=== PATIENT | female | born 1990 | race Caucasian/White ===

== ENCOUNTER 2017-01-28 00:04 | Inpatient (IN) | payer MEDICAID ==
[2017-01-28] VITALS (10 sets, daily range): BP systolic 94–132; BP diastolic 55–83; Ht 162.6 cm; Wt 113.2 kg
[~2017-01-28] VITALS: Ht 162.6 cm; Wt 113.2 kg
[~2017-01-28 00:04] MED LIST: ALPHAGAN 0.2%5 ML; CALCIUM 600 +1 EAC3 PO; IBUPROFEN600 MG PO; PERCOCET 5-3251 TAB PO; PROBIOTIC1 EAC1 PO; VITAMIN C250 MG
[2017-01-28 00:59] LABS: APPEARANCE HAZY (CLEAR); COLOR YELLOW (YELLOW); GLUCOSE NEGATIVE (NEGATIVE); KETONE SMALL mg/dL (NEGATIVE); LEUKOCYTE ESTERASE NEGATIVE (NEGATIVE); NITRITE NEGATIVE (NEGATIVE); PROTEIN NEGATIVE (NEGATIVE); UROBILINOGEN NORMAL (NORMAL)
[2017-01-28 01:00] LABS: BILIRUBIN NEGATIVE (NEGATIVE)
[2017-01-28 01:09] LABS: UDS - AMPHET NEGATIVE QUAL (NEGATIVE); UDS - BARB NEGATIVE QUAL (NEGATIVE); UDS - BENZO NEGATIVE QUAL (NEGATIVE); UDS - COCAINE NEGATIVE QUAL (NEGATIVE); UDS - METH NEGATIVE QUAL (NEGATIVE); UDS - OPIATE NEGATIVE QUAL (NEGATIVE); UDS - PCP NEGATIVE QUAL (NEGATIVE); UDS - THC NEGATIVE QUAL (NEGATIVE)
[2017-01-28 07:10] LABS: HEMATOCRIT 36.1 % (36.0-48.0); HEMOGLOBIN 11.6 g/dL (12-16); MCH 30.2 pg (26.0-34.0); MCHC 32.1 g/dL (31.0-37.0); MEAN PLATELET VOLUME 9.6 fL (7.4-10.4); RBC 3.84 10x6/uL (4.00-5.40); RDW 13.7 % (11.5-14.5); WBC 9.7 10x3/uL (4.8-10.8)
--- NOTE | 2017-01-28 08:07 | NUR ---
BABY BOY BORN AT 0742 PLACENTA AT 0743
--- NOTE | 2017-01-28 09:10 | NUR ---
REC'D PT BACK FROM RECOVERY POST-OP PRIMARY VIA BED. PT DROWZY, FREQUENTLY SLEEPY. PT UNABLE TO VERBALIZE/REPORT A NUMBER FOR PAIN SCALE. FACE SCALE USED AT THIS TIME. PAIN RATES 3/10 PER THIS RN. PT'S BREATHSOUNDS CL/=, ABD SOFT,NON-DISTENDED. FUNDUS FIRM,U/U, SMALL RUBRA LOCHIA NOTED TO CURRENT PERIPAD. CLEAN PAD PLACED AT THIS TIME. LOW TRANSVERSE INCISION W/LARGE ABD DRESSING IN PLACE. C/D/I. BRUCE CATH IN PLACE DRAINING VIA GRAVITY AT BEDSIDE. APPROX 500ML NOTED IN BAG. BAG EMPTIED AT THIS TIME. PEDAL PULSES PRESENT X 2. GENERALIZED, NON PITTING EDEMA NOTED TO LOWER EXTREMITIES. SCD WRAPS IN PLACED BILATERALLY. CONNECTED TO PUMP. PUMP IS ON AND FUNTIONING.PT HAS A PIV TO RT WRIST W/18GUAGE. NS W/20 UNITS PITOCIN CURRENTLY CONNECTED INFUSING AT SLOWR ATE VIA GRAVITY. APPROX 200ML REMAINS IN BAG. BAG PLACED ON PUMP AT THIS TIME TO INFUSE AT 125ML/HR. DEMEROL PRINTING SPECIALIST CONNECTED TO IV SITE AND PRINTING SPECIALIST PUMP SET PER MD ORDERS. REPORT REC'D FROM RECOVERY NURSE.
--- NOTE | 2017-01-28 09:30 | NUR ---
PT REMAINS DROWZY, FACE SCALE CONTINUED TO BE USED FOR PAIN ASSESSMENT. PAIN ASSESSED AT 12/03. FUNDUS FIRM,U/U, SCANT LOCHIA NOTED. V/S STABLE.
--- NOTE | 2017-01-28 09:45 | NUR ---
FUNDUS FIRM,U/U, SCANT LOCHIA NOTED. ICE CAP TO ABD. PT REMAINS DROWZY. NBN NURSE TO ROOM W/ AT THIS TIME.
--- NOTE | 2017-01-28 10:00 | NUR ---
ECTOR ( CONST) AND Dania OSPINARN AT BEDSIDE CURRENTLY ATTEMPTING TO GET LATCHED FOR NURSING. PT REPORTS INCREASED PAIN WHEN SITTING UP. Dania OSPINARN PROVIDES PT W/PRODUCT COORDINATOR BUTTON SO PT MAY PUSH IT AT THIS TIME. APPROX 95ML URINE NOTED IN UROMETER AND DUMPED TO BRUCE BAG. TORADOL 30MG SIVP GIVEN. SEE EMAR.
--- NOTE | 2017-01-28 10:25 | NUR ---
Rachana Henrietta 01/28/17 O: Patient in bed holding infant, attempting first feeding, FOB at bedside, nursery nurse in room to assist patient. Explain to patient how to hold for feeding, turn tummy to tummy, nose opposite of nipple, allow to self latch. Showed and explained how to apply nipple shield correctly. Patient is drowsy due to meds. Explain to FOB how important it is to stand by patient and help hold infant up, to make sure doesn't fall, if patient relaxes her arms. Infant latches on the right breast at 10:16, in laid back position, mouth 140 degrees, sucking in a rocking motion, round checks, mother and infant both appear content. Encouraged to allow infant to remain latch as long as he is willing to suck, when comes off the breast, or completely falls asleep, try stimulating by touch, burp and offer other breast. Patient states verbally understands. Will follow up, CLC left patient in room with nursery nurse. A: Client delivered by , requested nipple shield, attempting first feeding. P: Continue to support . Renee Sabillon, ЕКАТЕРИНА
--- NOTE | 2017-01-28 11:00 | NUR ---
THIS RN TO BEDSIDE. PT CURRENTLY HOLDING AFTER NURSING. PT CONTINUES TO BE DROWZY. TRANSFERED TO CRIB TO BE SWADDLED THEN PLACED IN FOB'S ARMS. PT RATES PAIN 5/10. PT HAS BEEN INSTRUCTED ON HOW TO USE HER FIELD MANAGER BUTTON AND HAS BEEN PUSHING IT. FUNUDS FIRM,U/U, SMALL RUBRA LOCHIA NOTED ON PERIPAD. PAD CHANGED AT THIS TIME. APPROX 20ML URINE NOTED IN UROMETER. PT ENCOURAGED TO INCREASE WATER INTAKE. V/S OBTAINED AND RECORDED. SEE FLOWSHEET. PT INFORMED THAT ONCE SHE BECOMES MORE ALERT, INCENTIVE SPIROMETER TEACHING WILL BE GIVEN AND PT WILL HAVE TO BEGIN T/C/D. PT'S SPOUSE REMAINS AT BEDSIDE. ICE CAP FRESHENED AND PLACED OVER INCISION SITE. FRESH ICE WATER SERVED AND PLACED AT PT'S BEDSIDE. PT BED IN LOW POSITION. SIDE RAILS UP X 2. CALL LIGHT, PHONE AND FIELD MANAGER BUTTON AT PT'S SIDE.
[2017-01-28] MEDS ORDERED: PRENATAL COMPLE1 TAB PO (11:13)
[2017-01-28] MEDS ORDERED: KEFLEX500 MG PO (11:16)
--- NOTE | 2017-01-28 12:00 | NUR ---
THIS RN TO BEDSIDE. PT CURRENTLY RESTING W/EYES CLOSED IN HIGH DELEON'S. I.S PROVIDED W/TEACHING. PT PERFORMS I.S X 3 ABLE TO PULL 2000. PT COUGH W/POOR EFFORT. HOB LOWERED. PT ROLLS FROM SIDE TO SIDE W/MODERATE ASSISTANCE. FUNDUS FIRM,U/U. SMALL RUBRA LOCHIA NOTED TO PAD. PERICARE DONE. CLEAN PAD PLACED. PT RETURNS TO HIGH DELEON'S PER PREFERNCE FOR COMFORT. APPROX 20ML URINE OUTPUT NOTED FOR PAST 1 HR. WILL CONTINUE TO MONITOR. PT'S CLEAR LIQUID LUNCH TRAY PLACED IN FRONT OF HER. PT HAS DRANK APPROX 300ML WATER FROM [facility] MUG. MUG REFILLED AND PLACED ON PT'S TABLE WITHIN HER REACH. NO NEEDS VOICED AT THIS TIME.
--- NOTE | 2017-01-28 13:00 | NUR ---
THIS RN TO BEDSIDE. PT SITTING IN [place]'S MORE AWAKE AND ALERT, BUT REPORT SHE STILL DOZES OFF OCCAISIONALLY. PT CONTINUES TO RATE HER PAIN 5/10 W/INCREASED PAIN W/MOVEMENT. PT DOES NOT APPEAR TO BE IN DISTRESS. PT HAS DRANK APPROX 200ML OF WATER AND APPLE JUICE. HAS NO TOUCHED HER CLEAR LIQUID LUNCH TRAY. APPROX 20ML URINE NOTED FOR THE PAST 1 HR. WILL REPORT TO RECEIVER SETTER MD. PT DENIES NEEDS AT PRESENT. FOB RETURNS TO ROOM AT THIS TIME.
--- NOTE | 2017-01-28 13:24 | NUR ---
DR VALLES NOTIFIED OF PT'S DECREASED URINE OUTPUT. ORDER REC'D TO INFUSE A 500ML BOLUS AND REPORT BACK.
--- NOTE | 2017-01-28 13:40 | NUR ---
THIS RN TO BEDSIDE TO INITATE 500ML NS BOLUS PER MD ORDER. PT AWAKE, WITH OCCASIONAL PERIODS OF DROWZINESS. PT CONTINUES TO RATE HER PAIN 5/10. PT HAS DRAPERY AND UPHOLSTERY ESTIMATOR BUTTON AT SIDE AND CONTINUES TO PUSH IT FOR PAIN. V/S OBTAINED. SEE FLOWSHEET. PT PERFORMS I.S X 3. COUGHS W/POOR EFFORT. REPOSITIONS SELF UP IN BED. UROMETER EMPTIED AT THIS TIME. FUNDUS FIRM,U/U, SMALL RUBRA LOCHIA NOTED. CLEAN PERIPAD PLACED. SCD WRAPS REMAIN ON BILATERALLY. CONNECTED TO PUMP. PT REMAINS ON. PT ENCOURAGED TO CONTINUE DRINK PO FLUIDS TO HELP WITH URINE OUTPUT. PT IS AGREEABLE. PT'S BED LOW, SIDE RAILS UP X 2. CALL LIGHT AND PHONE AT PT'S SIDE. SPOUSE IN ROOM. INFANT QUIET IN CRIB AT BEDSIDE.
--- NOTE | 2017-01-28 14:15 | NUR ---
IVAC SOUNDING. THIS RN TO BEDSIDE. 500ML BOLUS COMPLETE. PT RESTING W/EYES CLSOED. RESP EVEN. NS W/20 UNITS PITOCIN RESTARTED AT 125ML/HR. 30ML URINE NOTED IN UROMETER.
--- NOTE | 2017-01-28 15:00 | NUR ---
THIS RN TO BEDSIDE. PT CURRENTLY SITTING UP IN BED W/ UP IN ARMS. CONTINUES TO RATE PAIN 5/10. PT CONTINUES TO USE STRAIGHT LINE PRESS SETTER BUTTON. PT IFNORMED THAT SHE MAY AHVE ADDITIONAL DOSE OF TORDAL IN 1 HR. URINE OUTPUT NOTED TO BE 60ML TOTAL FOR PAST [id number]. PT DENEIS NEEDS AT THIS TIME.
--- NOTE | 2017-01-28 16:00 | NUR ---
THIS RN TO BEDSIDE. UPON ENTERING THE ROOM, PT IS RESTING QUIETLY IN HIGH DELEON'S W/EYES CLOSED. RESP EVEN AND UNLABORED. NO APPARENT DISTRESS NOTED. PT AWAKENED FOR PAIN ASSESSMENT. PT REPORTS PAIN 12/03. STATES "BUT I'M STILL HAVING CTX'S THAT ARE BAD." TORADOL 30MG SIVP GIVEN FOR PT C/O CRAMPING. PT TURNS FROM SIDE TO SIDE W/ASSISTANCE. CLEAN CHUX AND TOWEL PLACED. FUNDUS FIRM,U/1, SMALL LOCHIA W/1 QUARTER SIZED BLOOD CLOT NOTED. CLEAN PERIPAD PLACED. APPROX 95ML URINE NOTED IN UROMETER. PT'S HOB ELEVATED TO 30 DEGREES. BED LOW, SIDE RAILS UP X 2. CALL LIGHT AND WRINGER MACHINE OPERATOR BUTTON AT PT'S SIDE.
--- NOTE | 2017-01-28 17:00 | NUR ---
THIS RN TO BEDSIDE. PT CURRENTLY RESTING QUIETLY W/EYES CLOSED. RESP EVEN. PT OPENS EYES SPONTANEOUSLY W/VERBAL STIMULUS. PAIN ASSESSED. PT RATES PAIN 2-3/10. V/S OBTAINED. SEE FLOWSHEET. APPROX 60ML URINE NOTED IN UROMETER AND DUMPED INTO BAG. PT PERFORMS I.S. X3. COUGHS W/POOR EFFORT. FRESH ICE WATER SERVED IN [facility] MUG.
--- NOTE | 2017-01-28 18:00 | NUR ---
ROUNDS MADE. PT SITTING UP IN HIGH DELEON'S VISITING W/GUESTS. PAIN ASSESSED. PT REPORTS PAIN 3-4/. NO ADDITIONAL PAIN INTERVENTIONS REQUESTED AT THIS TIME. I&O COLLECTED. PUMP CLEARED. APPROX 60ML URINE OUTPUT NOTED IN UROMETER AND DUMPED INTO BRUCE BAG. PT CURRENTLY ATTEMPTING TO COMSUME LIQUID DIET DINNER TRAY SERVED. PT DENIES NEEDS AT PRESENT.
--- NOTE | 2017-01-28 19:06 | NUR ---
PT. SITTING UP IN BED WITH HOB ELEVATED 45 DEGREES WITH MEAL TRAY IN FRONT OF PT. PT. STATES SHE ONLY ATE JELLO. MORE OFFERED AND ACCEPTED. JELLO GIVEN TO PT. RATES PAIN A 2-3 OF 10 ON PAIN SCALE. BREATH SOUNDS CLEAR AND BOWEL SOUNDS AUDIBLE. SCDS ON AND FUNCTIONAL. DEMONSTATED COUGHING AND DEEP BREATHING AND ALSO USE OF INCENTIVE SPIROMETER AND ABLE TO ACHIEVE TO 2000. IV NOTED IN RT WRIST AREA WITHOUT REDNESS NOR EDEMA AT IV SITE. IV OF NS WITH 20U PITOCIN ADDED INFUSING AT 125CC/HR. INFANT IN OPEN CRIB AT BEDSIDE. PT. STATES SHE STILL FEELS VERY DROWSY. FOB LYING ON SOFA. LIGHTS IN ROOM DIMMED. PT. SPEAKING IN VERY LOW TONE. BRUCE PATENT AND DRAINING WITH 65CC NOTED IN URINE METER.
--- NOTE | 2017-01-28 19:48 | NUR ---
DR. VALLES CALLED AND INFORMED OF PT. CURRENT STATUS AND INQUIRED IF PT. COULD BEGIN ORAL MEDS AND START AMBULATION. INFORMED THAT ORAL PAIN MED ORDERS WERE ALREADY ENTERED PER DR. SOUTH. STATES TO PROCEDE.
--- NOTE | 2017-01-28 20:06 | NUR ---
PT INFANT AT THIS TIME. Kanwal POWELL RN AT BEDSIDE ALSO. UPDATED PT ON PLAN OF CARE, VERBALIZED UNDERSTANDING. INSTRUCTED TO USE CL TO NOTIFY RN WHEN SHE COMPLETED . PT NODDED IN AGREEMENT. HOSPITAL INTERNSHIP AND IV FLUIDS TURNED OFF, WILL REMOVE BRUCE AND SL PIV WHEN PT COMPLETES . 3 MLS USED FROM HOSPITAL INTERNSHIP WITH 254 MLS IV FLUIDS INFUSED SINCE LAST CLEARED.
--- NOTE | 2017-01-28 20:15 | NUR ---
PT CALLED OUT VIA CL, STATES THAT SHE HAS FINISHED . Kanwal POWELL RN TO BEDSIDE ALSO. LENORA STOCK SL PIV. Kanwal POWELL RN REMOVED BRUCE WITH NO DIFFICULTY, 165 MLS OUT FROM BRUCE NOTED. PT TOLERATED WELL. DINNER TRAY REMOVED FROM ROOM. S/O REMAINS AT BEDSIDE, SUPPORTIVE OF PT. PT DENIES ADDITIONAL NEEDS AT THIS TIME. PT WITH ICE PACK ON TOP OF GOWN TO LOWER ABD COVERING INCISION SITE. BED IN LOW POSITION WITH UPPER SIDE RAILS RAISED X2. CL AND PHONE WITHIN PT REACH. S/O REMAINS AT BEDSIDE.
--- NOTE | 2017-01-28 21:43 | NUR ---
ROUNDS MADE. PT REQUESTING PAIN MEDICATION. PAIN 04/04. RN DISCUSSED DIFFERENT STRENGTHS ON PERCOCET AND POSSIBLE SIDE EFFECTS. VERBALIZED UNDERSTANDING. PERCOCET TAKEN TO PT PER ORDER AND PT PAIN RATING AND REQUEST. UPON ADMINISTERING MEDICATION PT REPORTS THAT "I AM SENSITIVE TO PAIN MEDICINE." REQUESTS TO TAKE HALF OF PILL AT THIS TIME. PT BROKE PILL IN HALF AND STATES THAT SHE IS AFRAID TO TAKE FULL PILL AT THIS TIME. HALF OF PILL WASTED WITH Kanwal POWELL RN IN THE SHARPS. NEW ICE PACK GIVEN AND APPLIED TO INCISION SITE, DRSG REMAINS CLEAN, DRY, AND INTACT. ICE WATER GIVEN. LINENS AND PILLOW PROVIDED TO S/O. DENIES ADDITIONAL NEEDS AT THIS TIME. REQUESTS BE TAKEN TO NBN UNTIL TIME FOR NEXT FEEDING, THIS RN TAKES TO NBN. WILL CONT TO MONITOR AND ASSIST PRN.
--- NOTE | 2017-01-28 22:32 | NUR ---
PAIN REASSESSMENT COMPLETED. PT REPORTS THAT PAIN IS 4/10. STATES THAT CRAMPING IS INTENSE AT TIMES. DENIES NEED FOR ADDITIONAL INTERVENTION AT THIS TIME. S/O AT BEDSIDE, HOLDING PT HAND AT THIS TIME. BED IN LOW POSITION WITH UPPER SIDE RAILS RAISED X2. CL AND PHONE WITHIN REACH. WILL CONT TO MONITOR AND ASSIST PRN.
--- NOTE | 2017-01-28 22:58 | NUR ---
PT CONTINUES TO REPORT "BAD CRAMPING" TO LOWER ABD. DISCUSSED ADDITIONAL DOSE OF TORADOL PER ORDERS. PT AGREEABLE. MEDICATION FREQUENY AND SIDE EFFECTS DISCUSSED WITH PT AND S/O, VERBALIZED UNDERSTANDING, STATES THAT SHE HAS HAD MEDICATION PREVIOUSLY AND IT DID HELP WITH PAIN GREATLY. NBN RN BRINGS INFANT TO ROOM FOR . RN ASSISTED PT WITH SCOOTING UP IN BED FOR BREAST FEEDING, STATES THAT SHE ALSO HAS DISCOMFORT TO COCCYX. PILLOW PLACED UNDER LEFT HIP TO ASSIST WITH DISPLACING PRESSURE, VERBALIZED RELIEF. S/O REMAINS AT BEDSIDE, HOLDING . ASSISTANCE WITH OFFERED AND DECLINED, PT REPORTS THAT SHE WILL NOTIFY RN IF ASSISTANCE IS NEEDED WITH CL. BED IN LOW POSITION WITH UPPER SIDE RAILS RAISED X2. CL AND PHONE WITHIN REACH. S/O REMAINS AT BEDSIDE. ICE WATER PROVIDED FOR S/O PER REQUEST.
--- NOTE | 2017-01-29 00:10 | NUR ---
INTO PT. ROOM TO ASSIST PT. TO GET UP TO BATHROOM. PT. USING INCENTIVE SPIROMETER WHEN NURSES ENTERED ROOM. PT. MORE AWAKE AND ALERT AT THIS TIME THAN EARLIER IN SHIFT. SPEAKING TONE OF PT. LOUDER. STATES SHE FEELS URGE TO VOID. TO SITTING POSITION ON SIDE OF BED WITH MINIMAL ASSISTANCE AND USING PILLOW TO SPLINT ABD. STANDING AT SIDE OF BED AND AMBULATED TO BATHROOM WITH MINIMAL ASSISTANCE. STEADY, ALTHOUGH, SLOW GAIT. VOIDED 850CC. ASSISTED PT. WITH KAYLA CARE AND ASSISTED WITH KAYLA PADS AND PANTIES APPLIED. BACK TO BED AND POSITIONED TO LT SIDE AND SUPPORTED WITH PILLOW. SCDS REAPPLIED AND FUNCTIONAL. PT. RATES PAIN A 4 OF 10 AFTER TORADOL INJECTION BUT REMARKS THAT MEDICATION HELPED. ABD. DRESSING DRY AND INTACT AND LOCHIA RUBRA SCANT TO MOD. FOB REMAINS IN ROOM WITH PT. ENCOURAGED TO CALL FOR ASSISTANCE NEXT TIME SHE FELT SHE NEEDED TO VOID. SIDE RAILS UP X 2.
[2017-01-29 00:12] VITALS: BP 95/50
--- NOTE | 2017-01-29 02:20 | NUR ---
PT. REQUESTED ASSISTANCE IN GETTING LATCHED FOR . REPORTS THAT SHE HAS BEEN USING BREAST SHIELD BUT BREAST ARE NOW SORE AND SHE DOES NOT WANT TO USE. NIPPLES NOTED TO BE FLAT AND BREAST LARGE. ATTEMPTED TO ASSIST PT. BUT UNABLE TO GET LATCHED. PT. SWITCHED BREAST AND NIPPLE ROLLED IN ORDER TO GET NIPPLE MORE ERECT BUT STILL UNABLE TO LATCH DISPITE NUMEROUS ATTEMPTS BY INFANT. SUGGESTED PT. MIGHT TRY PUTTING SHIELD ON UNTIL NURSES LONG ENOUGH TO GET NIPPLE OUT FURTHER , THEN REMOVE SHIELD. PT. REPORTS "IT IS JUST TOO PAINFUL". INQUIRED IF PT. HAD ANY DIFFICULTY WITH HER PAST CHILDREN GETTING A GOOD LATCH. PT. REPORTS THAT SHE DID. PT. STATES "WE WILL GET IT FIGURED OUT". ALSO ENCOURAGED PT. TO [employer] MILK TO NIPPLE FOR TO TASTE AND PT. DID SAME BUT INFANT STILL UNABLE TO LATCH.
--- NOTE | 2017-01-29 03:00 | NUR ---
ASSISTED UP TO BATHROOM. GAIT STEADY. VOIDED 700CC. PT. BACK TO SITTING ON SIDE OF BED AND STATES SHE DESIRES TO SIT FOR AWHILE. ICE WATER PROVIDED AND ICE CAP REFILLED. PT. USING INCENTIVE SPIROMETER AND ENCOURAGED TO TAKE DEEP BREATHS. FOB AT BEDSIDE.
--- NOTE | 2017-01-29 04:08 | NUR ---
PT CALLS VIA CL, REQUEST THAT INFANT BE TAKEN TO NBN. SCD'S PLUGGED BACK IN. S/O NOT AT BEDSIDE AT THIS TIME. PT DENIES NEEDS. STATES THAT SHE IS GOING TO REST. BED IN LOW POSITION WITH UPPER SIDE RAILS RAISED X2. CL AND PHONE WITHIN REACH. PT VERBALIZED THAT SHE WILL USE CL FOR ASSISTANCE IF NEEDED. WILL CONT TO MONITOR AND ASSIST PRN.
--- NOTE | 2017-01-29 05:20 | NUR ---
PT. AT PRESENT. WILL RETURN WHEN FEEDING IS COMPLETED FOR VITAL SIGNS.
[2017-01-29 05:28] VITALS: BP 116/66
--- NOTE | 2017-01-29 05:28 | NUR ---
AMB. TO BATHROOM WITH MINIMAL ASSISTANCE. GAIT STEADY BUT SLOW. VOIDED AND KAYLA PAD CHANGED. LOCHIA RUBRA SCANT. PT. HOLDS PILLOW TO ABD. TO SPLINT WHEN AMBULATORY. PT. SITTING ON SIDE OF BED. DESIRES TO JUST SIT ON BED ON OTHER CHILDREN ARE IN ROOM. IN OPEN CRIB. ABD. DRESSING DRY AND INTACT.
--- NOTE | 2017-01-29 05:45 | NUR ---
PT. CONTINUES TO SIT ON SIDE OF BED. REQUESTED PAIN MED FOR PAIN SHE RATES A 5 OF 10 ON PAIN SCALE. PAIN MED GIVEN REQUESTED.
--- NOTE | 2017-01-29 06:02 | NUR ---
PT. REQUESTED INFANT RETURN TO NBN SO SHE CAN SLEEP. CURRENTLY POSITIONED IN RT TILT SUPPORTED WITH PILLOWS.
[2017-01-29 06:13] LABS: RAPID PLASMA REAGIN Non Reactive (Non Reactive)
--- NOTE | 2017-01-29 06:22 | NUR ---
PT. AWAKENED BY LAB FOR BLOOD DRAW. RATES PAIN A 4 OF 10 ON PAIN SCALE.
--- NOTE | 2017-01-29 06:35 | NUR ---
MD ON UNIT AND IN TO VISIT PATIENT.
[2017-01-29 06:42] LABS: HEMATOCRIT 32.8 % (36.0-48.0); HEMOGLOBIN 10.6 g/dL (12-16); MCH 29.9 pg (26.0-34.0); MCHC 32.3 g/dL (31.0-37.0); MCV 92.7 fL (80.0-100.0); MEAN PLATELET VOLUME 9.5 fL (7.4-10.4); RBC 3.54 10x6/uL (4.00-5.40); RDW 13.4 % (11.5-14.5)
[2017-01-29 06:43] LABS: WBC 18.7 10x3/uL (4.8-10.8)
--- NOTE | 2017-01-29 08:15 | NUR ---
To room for am assessment, pt is awake at this time. When asked for her pain level she states "ok as long as I don't move." when asked for a number of 0-10 as on pain scale she states "maybe a 4". VS as charted on graphic and assesment completed on flowsheet. Abd soft to touch, fundus firm with massage at u/u with light bleeding to allan pad. Pt states that yes she is passing gas and has not noticed any clots with voids. Encouraged her to try and get up to void every couple of hours this will help with pain control, she states her understanding to this and for her to call for nurse is any assistance is needed getting up from bed. IV saline to right wrist patent and no reddness and denies pain with touch. SCD on bilat lower extremities and pump is on. Denies any questions or concerns at this time. Call light is with in her reach and side rails up x 2.
[2017-01-29 08:17] VITALS: BP 107/60
--- NOTE | 2017-01-29 08:19 | NUR ---
Pt up to void with, assistance needed getting up from bed. Pt able to amb to bathroom and preform incision care per herself. Toothbrush/paste provided, explained that she could shower whenever she wanted, states she was waiting for her to return.
--- NOTE | 2017-01-29 10:10 | NUR ---
Infant taken to nbn via crib for Pedi assessment. Pt is sitting up in bed visiting with friends, when asked about pain level pt responds with "its ok" reminded her that she does have meds for pain control which are not scheduled but something she will need to let nurses know she needs, responds with nodding her head. Side rails up x 2 with call light in reach.
--- NOTE | 2017-01-29 11:00 | NUR ---
Pt calls for nurse, this rn to room. Ask for pain med for incision pain that she rates at 5/10. Also ask for Abd Binder so that she and spouse can walk in halls.
--- NOTE | 2017-01-29 11:10 | NUR ---
Pain med as charted on emar with large ice water per her request. Fitted for abd binder and shown how to wear, encouraged her to wear when up out of bed but remove when she gets back in bed. After binder is placed she does state that she feels more support. Pt and spouse amb out of room with pt pushing infant in crib, she is able to wall about half of unit hallway than back to room. Towels, allan pad/panties supplied and placed in bathroom for when she is ready to shower, ask that nurse be called when she does this so that linens on bed may be changed.
--- NOTE | 2017-01-29 13:18 | NUR ---
Pt sitting up in chair at bedside holding infant. Denies any needs at this time. Call light and phone within patients reach and spouse at bedside.
--- NOTE | 2017-01-29 15:48 | NUR ---
Pain med given as charted on emar for abd/incision pain that she rates at 7/10. Pt is tearful at this time and questions "when will I feel better" attempt to reassure her that her recovery time will vary but each day she will notice difference, she does smile and nod her head. Father of baby at bedside and ask if nursery nurse comes to room to answer questions about breast feeding. Pt denies any other needs at this time. Side rails up x 2 with phone and call light in reach.
[2017-01-29 15:53] VITALS: BP 98/55
--- NOTE | 2017-01-29 16:21 | NUR ---
Pt and spouse amb in hallway with pt pushing in crib, she is able to walk the entire length of unit hallway. Rates her pain at 2/10 at this time. Back to room with spouse and .
--- NOTE | 2017-01-29 18:45 | NUR ---
Infant in nursery at this time, pt resting with eyes closed, responds to her name being spoken. Denies needs at this time and states she just want to sleep and will call if she needs anything. Side rails up x 2 with call light in reach.
--- NOTE | 2017-01-29 19:06 | NUR ---
REPORT REC'D FROM Lexii MORALES RN. PT IN SEMI FOWLERS POSITION RESTING WITH EYES CLOSED. RESPIRATIONS REGULAR, NO S/S OF DISTRESS NOTED. SPOUSE AT BEDSIDE, REQUESTS THAT RN LET PT CONTINUE TO REST, STATES "SHE JUST WENT TO SLEEP ABOUT 30 MINUTES AGO." INSTRUCTED SPOUSE TO NOTIFY RN OF NEEDS, VERBALIZED UNDERSTANDING. BED IN LOW POSITION WITH UPPER SIDE RAILS RAISED X2. CL AND PHONE WITHIN REACH. WILL CONT TO MONITOR AND ASSIST PRN.
--- NOTE | 2017-01-29 19:25 | NUR ---
NBN RN TO ROOM WITH . PT AWAKE AND HOLDING WHEN RN ENTERED ROOM. PLAN OF CARE DISCUSSED WITH PT. VERBALIZED UNDERSTANDING. STATES THAT SHE WILL BE "IN A LITTLE BIT." REQUEST TIME TO EDWARDS WITH PRIOR TO ASSESSMENT AND FOR RN TO COMPLETE ASSESSMENT FOLLOWING BREAST FEEDING. S/O REMAINS AT BEDSIDE. WILL CONT TO MONITOR. INSTRUCTED PT TO NOTIFY RN WHEN SHE COMPLETED BREAST FEEDING, VERBALIZED UNDERSTANDING. PAIN 2/10 AT THIS TIME. FRESH ICE WATER GIVEN, DENIES ADDITIONAL NEEDS.
--- NOTE | 2017-01-29 20:16 | NUR ---
RN TO BEDSIDE. PT REQUESTING ASSISTANCE WITH , STATES THAT SHE CAN'T GET TO WAKE UP. NBN RN TO BEDSIDE TO ASSIST WITH . PT REQUESTS TO CONTINUE TO WAIT FOR ASSESSMENT. RN WILL CONT TO MONITOR. S/O REMAINS AT BEDSIDE. BED IN LOW POSITION WITH UPPER SIDE RAILS RAISED X2. CL AND PHONE WITHIN REACH.
[2017-01-29 21:10] VITALS: BP 102/61
--- NOTE | 2017-01-29 21:10 | NUR ---
PT REPORTS THAT SHE COMPLETED AND ALSO USED BREAST PUMP. SHIFT ASSESSMENT COMPLETED. VSS. FUNDUS FIRM U2, SCANT RUBRA LOCHIA TO PERIPAD, NO CLOTS PRESENT. PT REPORTS THAT BLEEDING HAS BEEN LIGHT ALL DAY. PERIPAD PRESENT BETWEEN ABD FOLD AND INCISION, INCISION CLEAN, DRY, AND WELL APPROXIMATED WITH STERISTRIPS INTACT, NO DRAINAGE PRESENT TO PERIPAD. BOWEL SOUND PRESENT AND ACTIVE X4 QUADRANTS, REPORTS THAT SHE HAS BEEN PASSING FLATUS. VOIDING WITHOUT DIFFICULTY. PAIN 2/10 INTERMITTENT ABD CRAMPING WITH STINGING TO INCISION. DENIES NEED FOR PAIN MEDICATION OR INTERVENTION. SCD'S ON. S/O AT BEDSIDE. BED IN LOW POSITION WITH UPPER SIDE RAILS RAISED X2. CL AND PHONE WITHIN REACH. WILL CONT TO MONTIOR AND ASSIST PRN.
--- NOTE | 2017-01-29 22:18 | NUR ---
ROUNDS MADE. INFANT IN CRIB AT BEDSIDE. PT IN HIGH FOWLERS POSITION WATCHING TV. PAIN 2-12/03. RN ASSISTED PT UP TO VOID. LINEN CHANGE DONE. ENCOURAGED PT TO SHOWER, DECLINED AT THIS TIME. STATES THAT SHE JUST WANTS TO GO TO SLEEP. PT REPORTS THAT SHE IS GOING TO TAKE TO NBN AND WALK BACK TO ROOM TO REST. S/O SUPPORTIVE OF PT. WILL CONT TO MONITOR AND ASSIST PRN.
--- NOTE | 2017-01-29 22:52 | NUR ---
PT BACK TO ROOM FOLLOWING AMBULATING AROUND UNIT IN THE [place]. PAIN 5/10, STINGING AND ACHING TO ABD INCISION CRAMPING. PT REQUESTS PAIN MEDICATION AND TO TAKE MOTRIN WITH PRECOCET. PT C/O PAIN TO PIV SITE. REDNESS AND WARMTH NOTED TO SITE, UNABLE TO FLUSH, PIV REMOVED. PT REFUSED RESITE. ICE WATER AND PUDDING GIVEN. DENIES ADDITIONAL NEEDS AT THIS TIME. S/O AT BEDSIDE AND SUPPORTIVE OF PT. BED IN LOW POSITION WITH UPPER SIDE RAILS RAISED X2. CL AND PHONE WITHIN REACH. WILL CONT TO MONITOR AND ASSIST PRN.
--- NOTE | 2017-01-29 23:42 | NUR ---
PAIN REASSESSMENT COMPLETED. . PT RESTING WITH EYES CLOSED, RESPIRATIONS REGULAR, NO S/S OF DISTRESS NOTED. WILL CONT TO MONITOR. S/O REMAINS AT BEDSIDE. BED IN LOW POSITION WITH UPPER SIDE RAILS RAISED X2. CL AND PHONE WITHIN REACH.
--- NOTE | 2017-01-30 00:16 | NUR ---
PT PREPARING TO BREAST FEED . DENIES NEEDS AT THIS TIME. WILL CONT TO MONITOR AND CHECK V/S WHEN PT COMPLETES BREAST FEEDING AND BONDING WITH INFANT. DENIES PAIN AT THIS TIME. S/O REMAINS AT BEDSIDE. CL AND PHONE WITHIN REACH. BED IN LOW POSITION WITH UPPER SIDE RAILS RAISED X2.
--- NOTE | 2017-01-30 01:25 | NUR ---
PT USING BREAST PUMP AT THIS TIME. STATES THAT INFANT NURSED FOR 20 MINUTES. WILL CALL RN TO ROOM USING CL ONCE SHE COMPLETES PUMPING. DENIES NEEDS AT THIS TIME.
[2017-01-30 02:16] VITALS: BP 103/58
--- NOTE | 2017-01-30 02:16 | NUR ---
S/O TO DESK, REPORTS THAT PT COMPLETED PUMPING. VSS. PAIN 3/10 AT THIS TIME. DENIES NEED FOR PAIN MEDICATION CURRENTLY. FUNDUS FIRM, U2, SCANT RUBRA LOCHIA, NO CLOTS PRESENT.
--- NOTE | 2017-01-30 02:25 | NUR ---
PT CALLS VIA CL. REQUEST THAT INFANT BE TAKEN TO NBN FOR HER TO SHOWER. RN OFFERED ASSISTANCE, PT REQUESTS THAT SPOUSE ASSIST WITH SHOWER. LINEN CHANGE COMPLETED.
--- NOTE | 2017-01-30 02:49 | NUR ---
SHOWER COMPLETED. PAIN 5/10 STINGING AND ACHING TO INCISION AND INTERMITTENT ABD CRAMPING. PT REQUESTS PAIN MEDICATION. PERCOCET GIVEN PER ORDER AND REQUEST. ICE WATER GIVEN. S/O REMAINS AT BEDSIDE. PT DENIES ADDITIONAL NEEDS. BED IN LOW POSITION WITH UPPER SIDE RAILS RAISED X2. CL AND PHONE WITHIN PT REACH. PT STATES THAT SHE IS GOING TO SLEEP UNTIL NEXT FEEDING AND REQUESTS NOT TO BE WOKE UP IF SHE IS SLEEPING.
--- NOTE | 2017-01-30 04:28 | NUR ---
ROUNDS MADE. PT BONDING WITH AT THIS TIME. PAIN 1-2/10, ABD CRAMPING. PT REPORTS THAT CRAMPING INCREASED WHILE SHE WAS BREAST FEEDING BUT DENIES NEED FOR INTERVENTION AT THIS TIME. DENIES NEEDS. BED IN LOW POSITION WITH UPPER SIDE RAILS RAISED X2. CL AND PHONE WITHIN REACH. PT REPORTS THAT SPOUSE HAD TO LEAVE GO TAKE CARE OF OLDER CHILDREN BUT WILL RETURN AROUND 0900. WILL CONT TO MONITOR AND ASSIST PRN.
[2017-01-30 05:16] VITALS: BP 106/64
--- NOTE | 2017-01-30 05:16 | NUR ---
VSS. FUNDUS FIRM, U2 WITH SCANT AMT RUBRA LOCHIA. PT REPORTS THAT SHE IS VERY SLEEPY, REQUESTS INFANT BE TAKEN TO NBN SO THAT SHE CAN REST. DENIES PAIN AT THIS TIME. BED IN LOW POSITION WITH UPPER SIDE RAILS RAISED X2. CL AND PHONE WITHIN REACH. TAKEN TO NBN. WILL CONT TO MONITOR AND ASSIST PRN.
--- NOTE | 2017-01-30 07:32 | NUR ---
AROUSED FROM SLEEP FOR . DENIES NEEDING ANYTHING AT THIS TIME. WILL COMPLETE SHIFT ASSESSMENT WHEN FINISHED AND AFTER BREAKFAST. SIDE RAILS UP X 2, CALL LIGHT PLACED IN REACH.
--- NOTE | 2017-01-30 07:40 | NUR ---
SITTING UP IN BED . DR VALLES VISITED. NEW ORDERS RECEIVED.
--- NOTE | 2017-01-30 08:50 | NUR ---
SITTING UP IN BED PUMPING LEFT BREAST, INFANT LAYING IN BED. SHIFT ASSESSMENT COMPLETED. PASSING GAS BUT NO BM YET. DENIES PAIN AT THIS TIME. DENIES THOUGHTS OF HURTING SELF OR ANYONE ELSE. DECLINES TDAP VACCINATION. NON-SMOKER. HAS BREAST PUMP AT HOME. READY TO GO HOME. OVERVIEW OF DC INSTRUCTIONS STARTED AT THIS TIME. NO REQUESTS. SIDERAILS UP X 2, CALL LIGHT IN REACH.
--- NOTE | 2017-01-30 08:55 | NUR ---
INFANT TO NURSERY FOR EVENT PRODUCER EVALUATION. REGULAR DIET AT BEDSIDE.
[2017-01-30 08:57] VITALS: BP 108/57
[2017-01-30] MEDS ORDERED: IBUPROFEN600 MG PO (09:19)
[2017-01-30] MEDS ORDERED: MEPERIDINE HCL50 MG PO (09:20)
--- NOTE | 2017-01-30 09:37 | NUR ---
REQUESTED PAIN MEDICATION FOR 3-4 INCISIONAL PULLING PAIN WITH MOVEMENT. DISCUSSED MEDICATION OPTIONS. SELECTED MOTRIN AT THIS TIME. INSTRUCTED IF PAIN NOT RELIEVED CAN RECEIVE PERCOCET. DISCUSSED PAIN MEDICATIONS SHE WILL BE DC'D HOME WITH. SITTING UP IN BED. FINISHED BREAKFAST. IN NURSERY. FOB IN ROOM. SIDERAILS UP X 2, CALL LIGHT IN REACH.
--- NOTE | 2017-01-30 09:41 | NUR ---
TECHNICAL TRANSLATOR BROUGHT BACK TO ROOM AND CURRENTLY TALKING WITH PATIENT AND FOB.
--- NOTE | 2017-01-30 10:33 | NUR ---
SITTING UP IN BED HOLDING . DC INSTRUCTIONS COMPLETED. QUESTIONS ANSWERED. INFANT NOT CURRENTLY BEING DC'D SO WILL PLAN DC HOME WITH . IF INFANT STAYS UNTIL TOMORROW WILL CONTACT MD FOR ROOMING-IN ORDER. SAYS HER PAIN IS BETTER AT 4-3/10 DENIES NEEDING ADDITIONAL MEDICATION AT THIS TIME. INSTRUCTED TO CALL IF SHE NEEDS ADDITIONAL PAIN MED. VERBALIZED UNDERSTANDING. VISITORS X 2 IN ROOM. CALL LIGHT IN REACH.
--- NOTE | 2017-01-30 12:55 | NUR ---
SITTING UP IN BED CURRENTLY PUMPING. STATES "HE ATE 10 MINUTES ON EACH SIDE". INFANT IN BED BETWEEN MOTHER'S LEGS SLEEPING. NO REQUESTS AT THIS MOMENT. TO CALL IF ANYTHING IS NEEDED. PLAN ROOMING-IN IF INFANT NOT DC'D TODAY.
--- NOTE | 2017-01-30 14:27 | NUR ---
AMBULATED AROUND L&D PUSHING IN CRIB. TOLERATED WELL. WAITING ON INFANT DC. NO REQUESTS.
--- NOTE | 2017-01-30 15:24 | NUR ---
REQUESTED PAIN MEDICATION FOR 4/10 INCISIONAL PAIN. DESIRED MOTRIN. MOTRIN 600 MG GIVEN PO AT THIS TIME. NOTED SCANT DROP OF BLOOD ON LEFT END PERIPAD THAT IS COVERING INCISION. UPON INSPECTION NOTED STERI-STRIP AT LEFT END SLIGHTLY FOLDED BACK AND IN CREASE ON INCISION LINE. SLIGHT BLEEDING PROBABLY SECONDARY TO RUBBING FROM STERISTRIP. NO INCISIONAL SEPERATION NOTED BUT REINFORCED AREA WITH VERTICLE. AGAIN INSTRUCTED PATIENT THAT STRIP WILL LOOSEN OVER NEXT FEW DAYS AND SHOULD BE REMOVED IN 7 DAYS IF THEY HAVE NOT COME OFF. VERBALIZED UNDERSTANDING. SIDE RAILS UP X 2. INFANT IN ROOM WITH FOB. ANTICIPATE DC OF INFANT LATE THIS AFTERNOON.
--- NOTE | 2017-01-30 16:51 | NUR ---
RETURNED FROM BATHROOM AND NOW PUMPING. SAYS HER INCISIONAL PAIN IS ABOUT A 4/10. OFFERED PERCOCET WHICH SHE DESIRES. PERCOCET 5 MG GIVEN FOR RELIEF. INSTRUCTED THAT SHE MAY FEEL/EXPERIENCE SOME PULLING AND BURNING WHEN SHE MOVES. VERBALIZED UNDERSTANDING. WAITING ON FEEDING ASSESSMENT BY SUPERVISOR [employer]ING [employer] PRIOR TO DC ORDER. Sis MCDERMOTT RN, NURSERY WILL TALK TO SUPERVISOR [employer]. SIDE RAILS UP X 2, FOB AND IN ROOM. CALL LIGHT IN REACH.
--- NOTE | 2017-01-30 17:47 | NUR ---
SITTING UP EATING DINNER WITH FOB. HAS PUMPED BUT HAS NOT BREASTFEED . GRAPE CUTTER IS WAITING ON PT TO BREASTFEED BEFORE DETERMINING DC STATUS. RECOMMENDED TO SPOUSE THAT HE BRAKE [employer] PRESCRIPTIONS FROM PHARMACY SO PT CAN BE DC'D TO ROOMING-IN STATUS IN CASE IS NOT DC'D HOME. STATES "OUR PHARMACY IS 24 HOURS" PLANS TO BRAKE [employer] RX AFTER EATING.
--- NOTE | 2017-01-30 18:16 | NUR ---
SITTING UP IN BED. SAYS HER PAIN IS 2/10 CURRENTLY. REQUESTED FRESH WATER. NO ADDITIONAL REQUESTS. DC PLAN AND TEACHING WAS COMPLETED EARLIER. PT HAS DC INSTRUCTIONS AND PRESCRIPTIONS. WAITING ON INFANT DC TO DISCHARGE PT.
--- NOTE | 2017-01-30 19:10 | NUR ---
REPORT REC'D FROM Arely COOMBS RN. D/C PAPERWORK AND INSTRUCTIONS GIVEN TO PT DURING PREVIOUS SHIFT. S/O LEFT HOSPITAL TO GO GET PRESCRIPTIONS FILLED FOR PT. PT INFANT AT THIS TIME. INSTRUCTED TO NOTIFY RN WHEN COMPLETED FOR RN TO REVIEW ROOMING IN AGREEMENT. VERBALIZED UNDERSTANDING.
--- NOTE | 2017-01-30 20:45 | NUR ---
PT CALLS VIA CL, STATES THAT SHE HAS COMPLETED AND PUMPING. ROOMING IN AGREEMENT DISCUSSED WITH PT AND S/O. VERBALIZE UNDERSTANDING. COPY OF AGREEMENT GIVEN TO PT, PT READS AGREEMENT AND SIGNS. DENIES QUESTIONS AT THIS TIME.
--- NOTE | 2017-01-31 07:47 | OP ---
PATIENT NAME: VIJAY HOWARD V MEDICAL RECORD: [id number] :86 LOCATION:[id number] ADMISSION DATE:01/28/17 SURGEON: ALICE SOUTH MD DATE OF OPERATION: 01/28/2017 PREOPERATIVE DIAGNOSIS: Nonreassuring trace. POSTOPERATIVE DIAGNOSIS: Nonreassuring trace. PROCEDURE: Primary low transverse section. SURGEON: Alice South MD ANESTHESIA: Spinal. FINDINGS: A 5 pound 6.5 ounce male in cephalic presentation with 9 and 9 Apgars. ESTIMATED BLOOD LOSS: 800 cc. COMPLICATIONS OF SURGERY: None. OPERATIVE NOTE: The patient was taken to the OR and under adequate spinal anesthesia, prepped and draped in the usual manner for abdominal procedures. A transverse incision was made in the lower abdomen and extended through subcutaneous tissue, fascia, dividing muscles in the midline in the Pfannenstiel manner. Peritoneum was then elevated and incised and this incision extended from the symphysis pubis to within 6 cm of the umbilicus, avoiding the bladder and abdominal organs. A transverse incision was then made in the lower uterine segment and infant was delivered easily through the incision from a cephalic presentation. The was suctioned, cord doubly clamped and ligated and the infant handed to waiting nursery personnel. Placenta was removed manually. The uterus was cleansed of blood clots with clean laps. A lower uterine segment incision was closed in two layers, first layer running interlocking #1 chromic, second layer imbricating #1 chromic. Sponge and needle counts were correct. Hemostasis was good. Noe was applied to the lower uterine segment incision. The fascial layer was closed in a running noninterlocking #1 PDS loop suture. Skin incision was closed in 2 layers, first layer a running 2-0 plain gut suture. Skin incision was closed with subcuticular 2-0 plain gut suture. Dermabond was applied, a Steri-Strip dressing was applied and the patient went to the recovery area in good condition. TRANSINT:[id number] Voice Confirmation ID: [id number] DOCUMENT ID: [id number] ALICE SOUTH MD at 0747 CC: [id number] DICTATION DATE: 01/28/17 1004 BODY FORMER: 01/28/17 190 DIS IN 01/30/17 [facility] [address] [place] [address]
== END 2017-01-30 20:45 | disposition home or self-care (01) | DRG 766 ==
LOC: D.LDO 00:04 → D.LD 06:27
PROVIDERS: ADMIT Obstetrics & Gynecology
PROC: 10D00Z1 Extraction of Products of Conception, Low, Open Approach (ICD-10-PCS; principal; 2017-01-28 07:30)
DX: O42.013 Preterm premature rupture of membranes, onset of labor within 24 hours of rupture, third trimester (principal); Z3A.34 34 weeks gestation of pregnancy; Z37.0 Single live birth; O76 Abnormality in fetal heart rate and rhythm complicating labor and delivery; O75.89 Other specified complications of labor and delivery; R00.0 Tachycardia, unspecified

== ENCOUNTER 2018-01-06 14:12 | Emergency (ER) | payer SELFPAY ==
[2017-01-28 10:31] VITALS: BMI 42.9
[~2018-01-06 14:12] MED LIST changes: +KEFLEX500 MG PO; +MEPERIDINE HCL50 MG PO; +PRENATAL COMPLE1 TAB PO
== END 2018-01-06 16:11 | disposition home or self-care (01) ==
LOC: D.ER 14:12
DX: S00.86XA Insect bite (nonvenomous) of other part of head, initial encounter (principal); W57.XXXA Bitten or stung by nonvenomous insect and other nonvenomous arthropods, initial encounter; Y93.89 Activity, other specified; Y92.019 Unspecified place in single-family (private) house as the place of occurrence of the external cause; L03.211 Cellulitis of face

== ENCOUNTER 2018-07-18 19:24 | Emergency (ER) | payer MEDICAID ==
[~2018-07-18] VITALS: Ht 162.6 cm; Wt 101.2 kg
[2018-07-18 19:37] VITALS: Ht 162.6 cm; Wt 101.2 kg
[2018-07-18 20:31] LABS: BASOPHILS 0.3 % (0-2); EOSINOPHILS 2.5 % (0-7); HEMATOCRIT 41.9 % (36.0-48.0); HEMOGLOBIN 13.9 g/dL (12-16); IMMATURE GRANULOCYTES 0.1 % (0-5); LYMPHOCYTES 30.4 % (15-50); MCH 30.8 pg (26.0-34.0); MCHC 33.2 g/dL (31.0-37.0); MCV 92.9 fL (80.0-100.0); MEAN PLATELET VOLUME 10.4 fL (7.4-10.4); MONOCYTES 8.3 % (2-11); NEUTROPHILS 58.4 % (40-80); RBC 4.51 10x6/uL (4.00-5.40); WBC 7.5 10x3/uL (4.8-10.8)
[2018-07-18 21:08] LABS: PLATELET COUNT 327 10x3/uL (130-400)
[2018-07-18 21:23] LABS: HCG SERUM POSITIVE (NEGATIVE)
[2018-07-18 21:25] LABS: ALBUMIN 3.9 g/dL (3.4-5.0); ALKALINE PHOSPHATASE 95 U/L (46-116); ALT (SGPT) 25 U/L (10-68); BILIRUBIN - TOTAL 0.16 mg/dL (0.2-1.3); CALC OSMOLALITY 278 mosm/kg (275-300); CALCIUM 9.4 mg/dL (8.5-10.1); CARBON DIOXIDE 24.6 mmol/L (21.0-32.0); CHLORIDE - SERUM 105 mmol/L (98-107); CREATININE - SERUM 0.8 mg/dL (0.6-1.3); GLUCOSE 94 mg/dL (74-106); POTASSIUM - SERUM 3.9 mmol/L (3.5-5.1); PROTEIN - SERUM 8.5 g/dL (6.4-8.2); SODIUM 141 mmol/L (136-145); UREA NITROGEN 8 mg/dL (7-18); eGFR NON AFRICAN AMERICAN 90 mL/min (90-120)
[2018-07-18 21:32] LABS: APPEARANCE CLEAR (CLEAR); BILIRUBIN NEGATIVE (NEGATIVE); COLOR YELLOW (YELLOW); GLUCOSE NEGATIVE (NEGATIVE); KETONE NEGATIVE (NEGATIVE); NITRITE NEGATIVE (NEGATIVE); PROTEIN NEGATIVE (NEGATIVE); UROBILINOGEN NORMAL (NORMAL)
[2018-07-18 21:33] LABS: RED CELLS - URINE OCC /hpf (0-5); WHITE CELLS - URINE OCC /hpf (0-5)
[2018-07-18 21:34] LABS: BACTERIA FEW /hpf (NONE SEEN)
[2018-07-18 21:37] LABS: HCG - QUANTITATIVE (MATERNAL) 423 mIU/mL
[2018-07-18 23:40] VITALS: BP 111/55
[2018-07-21 09:18] LABS: CHLAMYDIA TRACHOMATIS, NAA Negative (Negative)
== END 2018-07-18 23:40 | disposition home or self-care (01) ==
LOC: D.ER 19:24
PROVIDERS: Family Medicine
DX: O20.9 Hemorrhage in early pregnancy, unspecified (principal); Z3A.00 Weeks of gestation of pregnancy not specified; R10.30 Lower abdominal pain, unspecified